=== PATIENT | female | born 1980 | race African-American/Black ===

== ENCOUNTER 2016-07-30 17:20 | Emergency (ER) | payer SELFPAY ==
[~2016-07-30 17:20] MED LIST: CLIN300C86 PO; HYDR12.58 PO; LISI40TA PO; METR500T PO; OXYC1TAB7 PO
[2016-07-30 18:06] VITALS: BP 178/131
[2016-07-30 19:12] LABS: CALCIUM 9.5 mg/dL (8.5-10.1); CREATININE 1.1 mg/dL (0.6-1.0); GFR 67.3; POTASSIUM 3.6 mmol/L (3.5-5.1)
[2016-07-30] MEDS ORDERED: LISI40TA PO (19:31)
--- NOTE | 2016-07-30 19:31 | PHYS DOC ---
Past Medical History Past Medical History: Hypertension Past Surgical History: , Other Additional Past Surgical Histo: hernia Alcohol Use: Occasionally Drug Use: Marijuana Adult General Chief Complaint Chief Complaint: HEADACHE HPI HPI Patient is a 36 year old female who presents with gradual onset, intermittent headaches for the past week or so. States they improve with tylenol. She notes being out of lisinopril 40mg for 1 month or so due to lack of PCP. She currently has minimal bilateral throbbing headache. She denies vision changes, dizziness, nausea or vomiting, fever or chills, chest pain, dyspnea, abdominal pain, numbness, tingling, weakness. Denies orthopnea or exertional symptoms. Review of Systems Review of Systems Constitutional: Denies fever or chills [] Eyes: Denies change in visual acuity, redness, or eye pain [] HENT: Denies nasal congestion or sore throat [] Respiratory: Denies cough or shortness of breath [] Cardiovascular: No additional information not addressed in HPI [] GI: Denies abdominal pain, nausea, vomiting, bloody stools or diarrhea [] : Denies dysuria or hematuria [] Musculoskeletal: Denies back pain or joint pain [] Integument: Denies rash or skin lesions [] Neurologic: Denies focal weakness or sensory changes [] Endocrine: Denies polyuria or polydipsia [] Allergies Allergies Allergies Coded Allergies Type Severity Reaction Last Updated Verified No Known Drug Allergies 02/27/16 No Physical Exam Physical Exam Constitutional: Well developed, well nourished, no acute distress, non-toxic appearance. [] HENT: Normocephalic, atraumatic, bilateral external ears normal, oropharynx moist, no oral exudates, nose normal. [] Eyes: PERRLA, EOMI. [] Neck: Normal range of motion, supple. [] Cardiovascular:Heart rate regular rhythm [] Lungs & Thorax: Bilateral breath sounds clear to auscultation [] Abdomen: Bowel sounds normal, soft, no tenderness. [] Skin: Warm, dry, no erythema, no rash. [] Back: Normal range of motion. [] Extremities: No tenderness, ROM intact, no edema. [] Neurologic: Alert and oriented X 3, normal motor function, normal sensory function, no focal deficits noted, cranial nerves II through XII intact. [] Psychologic: Affect normal, judgement normal, mood normal. [] Current Patient Data Vital Signs Vital Signs Date Time Temp Pulse Resp B/P Pulse Ox O2 Delivery O2 Flow Rate FiO2 07/30/16 18:06 97.9 71 20 178/131 99 Room Air 97.9 Lab Values Laboratory Tests Test 07/30/16 18:50 Sodium Level 141mmol/L (136-145) Potassium Level 3.6mmol/L (3.5-5.1) Chloride Level 103mmol/L (98-107) Carbon Dioxide Level 29mmol/L (21-32) Anion Gap 9 (6-14) Blood Urea Nitrogen 8mg/dL (7-20) Creatinine 1.1mg/dL (0.6-1.0) H Estimated GFR (Cockcroft-Gault) 67.3 Glucose Level 117mg/dL (70-99) H Calcium Level 9.5mg/dL (8.5-10.1) Troponin I Quantitative < 0.017ng/mL (0.000-0.055) BS-Mom-F-Type Natriuretic Peptide 193pg/mL (0-124) H Laboratory Tests 07/30/16 18:50 EKG EKG EKG as interpreted by me as normal sinus rhythm, rate 66, no ST-T changes, normal intervals, no ectopy Course & Med Decision Making Course & Med Decision Making Pertinent Labs and Imaging studies reviewed. (See chart for details) Workup is unremarkable. Provided 1 month prescription for lisinopril 40 mg daily. Encouraged her to get a primary care doctor for follow-up. Return precautions given. She understands and agrees with plan. Dragon Disclaimer Dragon Disclaimer This electronic medical record was generated, in whole or in part, using a voice recognition dictation system. Departure Departure Impression: Primary Impression: Uncontrolled hypertension Additional Impression: Headache Disposition: 01 HOME, SELF-CARE Condition: STABLE Referrals: UNKNOWN PCP NAME (PCP) Patient Instructions: Headache, FAQs Additional Instructions: Take Tylenol or ibuprofen as needed for pain. Take lisinopril as prescribed for high blood pressure. Follow-up with your primary care doctor within one week. Return for any concerns. Scripts Lisinopril 40 Mg Tablet1 Tab PO DAILY #30 TAB Ref 0 Prov:Edith MEYER MD 07/30/16 Problem Qualifiers Additional Impression: Headache Headache type: unspecified Headache chronicity pattern: episodic headache Intractability: not intractable Qualified Code: R51 - Headache Edith MEYER MD Jul 30, 2016 19:31
--- NOTE | 2016-07-31 01:14 | EKG ---
[facility] [address] [place] [address] Test Date: 2016-07-30 Test Time: 19:00:39 Pat Name: LYUBOV TYLER Department: Room: Gender: F Resident Care Spec: : 1980 Requested By: Edith MEYER Order Number: [id number] Reading MD: Measurements Intervals [place] Rate: 66 P: 47 SC: 156 QRS: -25 QRSD: 96 T: 16 QT: 410 QTc: 432 Interpretive Statements SINUS RHYTHM LEFT ATRIAL ABNORMALITY LEFTWARD AXIS INCOMPLETE RIGHT BUNDLE BRANCH BLOCK QRS(T) CONTOUR ABNORMALITY CONSIDER ANTEROSEPTAL MYOCARDIAL DAMAGE ABNORMAL ECG RI6.01 No previous ECG available for comparison
== END 2016-07-30 19:48 | disposition home or self-care (01) ==
LOC: ER 17:20
DX: R51 Headache (principal); I10 Essential (primary) hypertension; F12.10 Cannabis abuse, uncomplicated
CPT/HCPCS: 36415; 80048; 83880; 84484; 93005; 99285-25

== ENCOUNTER 2019-11-12 14:38 | Emergency (ER) | payer SELFPAY ==
[~2019-11-12] VITALS: Ht 154.9 cm; Wt 90.9 kg
[~2019-11-12 14:38] MED LIST changes: +CLIN300C8 PO; -CLIN300C86 PO; +LISI-130 PO; -LISI40TA PO
[2019-11-12 15:50] VITALS: BP 179/107
--- NOTE | 2019-11-12 16:17 | RAD ---
Left foot 3 views. HISTORY: Stepped barefoot on to broken glass 3 views were taken of the left foot. There is not evidence of a fracture or osseous abnormality. In the superficial soft tissues of the foot posterior to the tarsal bones is a density suggesting an foreign body. The density is seen on the lateral view. IMPRESSION: 1. Small foreign body in the superficial soft tissues of the plantar aspect of the left foot. Electronically signed by: Jarad Uribe MD (11/12/2019 4:14 PM) [facility]
--- NOTE | 2019-11-12 16:25 | PHYS DOC ---
Past Medical History Past Medical History: Hypertension Past Surgical History: , Other Additional Past Surgical Histo: hernia Smoking Status: Current Every Day Smoker Alcohol Use: Occasionally Drug Use: Marijuana General Adult EDM: Chief Complaint: FOOT INJURY PAIN HPI: HPI: Patient is a 39 year old female who presents with left foot pain after stepping on broken glass while barefoot on 09 November at approximately 2330. Patient states she is unsure if she removed any glass pieces from her foot or not. Patient states she washed her foot with soap and water and used peroxide to disinfect. Patient denies any other injuries. Patient states her last tetanus immunization was less than 5 years ago. Patient rates her pain a 5/10 of her left foot. Patient denies bleeding from this injury. Patient denies fever chills, vision changes, congestion or sore throat, cough or shortness of breath, chest pains or swelling or edema. Patient denies abdominal pains, nausea, vomiting, diarrhea, changes in bowel habits, changes in urinary habits, back pain or joint pain, skin rashes, headaches or focal weaknesses, sensory disturbances. Patient denies swelling or swelling of her glands, denies recent depressions or anxieties. Review of Systems: Review of Systems: Constitutional: Denies fever or chills. [] Eyes: Denies change in visual acuity. [] HENT: Denies nasal congestion or sore throat. [] Respiratory: Denies cough or shortness of breath. [] Cardiovascular: Denies chest pain or edema. [] GI: Denies abdominal pain, nausea, vomiting, bloody stools or diarrhea. [] : Denies dysuria. [] Musculoskeletal: Denies back pain or joint pain. [] Integument: Denies rash. Glass puncture to bottom of left foot with possible glass foreign body remaining. Neurologic: Denies headache, focal weakness or sensory changes. [] Endocrine: Denies polyuria or polydipsia. [] Lymphatic: Denies swollen glands. [] Psychiatric: Denies depression or anxiety. [] Heart Score: Risk Factors: Risk Factors: DM, Current or recent (<one month) smoker, HTN, HLP, family history of CAD, obesity. Risk Scores: Score 0 - 3: 2.5% MACE over next 6 weeks - Discharge Home Score 4 - 6: 20.3% MACE over next 6 weeks - Admit for Clinical Observation Score 7 - 10: 72.7% MACE over next 6 weeks - Early Invasive Strategies Family History: Family History: No significant family history related to this ER visit. Current Medications: Patient reports taking 40 mg lisinopril daily for high blood pressure. Patient denies taking other prescription medications. Allergies: Allergies: Allergies Coded Allergies Type Severity Reaction Last Updated Verified No Known Drug Allergies 02/27/16 No Physical Exam: PE: Constitutional: Well developed, well nourished, no acute distress, non-toxic appearance. [] HENT: Normocephalic, atraumatic, bilateral external ears normal, oropharynx moist, no oral exudates, nose normal. [] Eyes: PERRLA, EOMI, conjunctiva normal, no discharge. [] Neck: Normal range of motion, no tenderness, supple, no stridor. [] Cardiovascular:Heart rate regular rhythm, no murmur [] Lungs & Thorax: Bilateral breath sounds clear to auscultation [] Abdomen: Bowel sounds normal, soft, no tenderness, no masses, no pulsatile masses. [] Skin: Warm, dry, no erythema, no rash. Patient has puncture wound less than 0.5 mm to plantar surface left foot at center of plantar surface without bleeding or edema. No drainage or infectious process noted at puncture site. No foreign body palpated at puncture site. Back: No tenderness, no CVA tenderness. [] Extremities: No tenderness, no cyanosis, no clubbing, ROM intact, no edema. [] Neurologic: Alert and oriented X 3, normal motor function, normal sensory function, no focal deficits noted. [] Psychologic: Affect normal, judgement normal, mood normal. [] EKG: EKG: [] Radiology/Procedures: Radiology/Procedures: PROCEDURE: FOOT LEFT 3V Left foot 3 views. HISTORY: Stepped barefoot on to broken glass 3 views were taken of the left foot. There is not evidence of a fracture or osseous abnormality. In the superficial soft tissues of the foot posterior to the tarsal bones is a density suggesting an foreign body. The density is seen on the lateral view. IMPRESSION: 1. Small foreign body in the superficial soft tissues of the plantar aspect of the left foot. Electronically signed by: Tang Ross MD (11/12/2019 4:14 PM) [facility] DICTATED and SIGNED BY: TANG ROSS MD DATE: 11/12/19 6521 Course & Med Decision Making: Course & Med Decision Making Pertinent Labs and Imaging studies reviewed. (See chart for details) 39-year-old patient arrives to the ER today with complaints of stepping on broken glass while barefoot last night at approximately 2330. Patient reports she feels as if there is a piece of glass still left in her left foot after she has washed it with soap and water and cleansed it with peroxide. She states that she is unable to retrieve the glass but she feels like it is in her foot. Upon examination of patient's left foot revealed a less than 1 mm puncture wound to the plantar surface near Lisfrank's joint without bleeding. A foreign body could not be appreciated with palpation. X-ray imaging of the left foot revealed a foreign body at the area of where the puncture wound was located. Explained to patient need to anesthetize and remove the foreign body with explor ation. The patient was amenable to this recommendation. The patient was cleansed, anesthetized, antibiotic ointment applied, and dressed without incident. Patient tolerated this procedure well. Patient was given prescriptions for 800 mg ibuprofen for pain, and Augmentin for antibiotic prophylaxis. Wound care instructions were reviewed with the patient. Reviewed need for smoking cessation with patient. Reviewed home care instructions and reviewed prescriptions with patient. Patient was amenable to discharge planning and had no further questions. Dragon Disclaimer: Yanni Disclaimer: This electronic medical record was generated, in whole or in part, using a voice recognition dictation system. Departure Departure Impression: Primary Impression: Glass foreign body in skin Disposition: HOME, SELF-CARE Condition: GOOD Referrals: NO PCP (PCP) Patient Instructions: Antibiotic Medication, Nonsteroidal Anti-Inflammatory Medications-SportsMed, Wound Care, [id number] Additional Instructions: Follow wound care instructions, take antibiotic as directed, take ibuprofen as needed for pain. Return to ER if symptoms worsen or sings of infection arise. Scripts Ibuprofen (IBUPROFEN) 800 Mg Tablet 800 MG PO PRN Q6HRS PRN for INFLAMMATION, #14 TAB 0 Refills Prov: MARIA DEL CARMEN SEVILLA APRN 11/12/19 Amoxicillin/Potassium Clav (AUGMENTIN 875-125 TABLET) 1 Each Tablet 1 TAB PO BID for 7 Days, #14 TAB 0 Refills Prov: MARIA DEL CARMEN SEVILLA APRN 11/12/19 Justicifation of Admission Dx: Justifications for Admission: Justification of Admission Dx: N/A Foreign Body Removal Procedure Indication: Removal of broken glass foreign body from bottom of left foot Procedure: The area of the foreign body was cleansed with Betadine solution and irrigated with normal saline approximately 100 cc. Approximately 2 mL of 1% lidocaine without epinephrine was injected dermally for local anesthesia over the foreign body site. The foreign body identified as a glass shard approximately 1 mm x 10 mm was then removed after opening the puncture wound site with an 11 blade scalpel with minimal estimated blood loss of 1 cc. After the procedure the foreign body removal site was then again cleansed with normal saline, double antibiotic ointment applied, a nonadherent Telfa was applied, and was bandaged with Coban. The patient's tetanus status was up-to-date per patient statement was approximately 1 to 2 years ago. The patient tolerated the procedure well without incident. Complications: No complications noted MARIA DEL CARMEN SEVILLA APRN Nov 12, 2019 16:25
[2019-11-12] MEDS ORDERED: LIDOCAINE 1% Multi-Dose 20 ML VIAL. INJ ONE (16:45)
[2019-11-12] MEDS ORDERED: BACITRACIN/POLYMYXIN B TOPICAL OINT 28.3GM TUBE. TP ONE (17:00)
[2019-11-12] MEDS ORDERED: AMOX1TAB61 PO (17:40)
[2019-11-12] MEDS ORDERED: IBUP-1060 PO (17:40)
== END 2019-11-12 17:55 | disposition home or self-care (01) ==
LOC: ER 14:38
DX: S90.852A Superficial foreign body, left foot, initial encounter (principal); I10 Essential (primary) hypertension; F17.200 Nicotine dependence, unspecified, uncomplicated; X58.XXXA Exposure to other specified factors, initial encounter; Y93.89 Activity, other specified; Y92.89 Other specified places as the place of occurrence of the external cause; Y99.8 Other external cause status
CPT/HCPCS: 10120; 73630; 99285; J3490; 99284-25